=== PATIENT | male | born 1935 | race Caucasian/White ===

== ENCOUNTER 2017-07-13 06:39 | Emergency (ER) | payer MEDICARE, OTHER ==
--- NOTE | 2017-07-13 08:18 | EDM.PDOC ---
ED HPI GENERAL MEDICAL PROBLEM - General Chief Complaint: Neurological Problem Stated Complaint: STROKE? Time Seen by Provider: 07/13/17 06:50 Source of Information: Reports: Patient History Limitations: Reports: No Limitations - History of Present Illness Onset: Today, Other (pt woke up with symptoms. ) Duration: Hour(s): Location: Reports: Face, Other (pt has slurred speech. ) Associated Symptoms: Reports: No Other Symptoms - Related Data Allergies Allergy/AdvReac Type Severity Reaction Status Date / Time amoxicillin [From Augmentin] Allergy Hives Verified 07/13/17 06:50 clavulanic acid Allergy Hives Verified 07/13/17 06:50 [From Augmentin] Home Meds: Home Meds Acetaminophen [Mapap] 325 mg PO Q4HR PRN 08/11/14 [History] Calcium Carbonate/Vitamin D3 [Calcium 600 + Vit D 400] 600 mg PO DAILY 08/11/14 [History] Cyanocobalamin (Vitamin B12) [Vitamin B12] 500 mcg PO DAILY 08/11/14 [History] Fluticasone Propionate [Flovent] 2 sprays KIEL DAILY 08/11/14 [History] Multivitamin [Chewable Multi Vitamin] 1 tab PO DAILY 08/11/14 [History] Marion-3 Fatty Acids [Marion-3] 2,000 mg PO DAILY 08/11/14 [History] Omeprazole [Prilosec] 20 mg PO ASDIRECTED PRN 08/11/14 [History] Sildenafil Citrate [Viagra] 50 mg PO ASDIRECTED PRN 08/11/14 [History] Simvastatin [Zocor] 20 mg PO DAILY 08/11/14 [History] Triamterene/Hydrochlorothiazid [Triamterene-HCTZ 37.5-25 MG] 37.5 mg PO DAILY [History] Acyclovir 400 mg PO DAILY PRN 07/13/17 [History] Metoprolol Tartrate [Lopressor] 25 mg PO Q12HR 07/13/17 [History] Warfarin [Coumadin] 5 mg PO DAILY 07/13/17 [History] predniSONE [Prednisone] 5 mg PO DAILY PRN 07/13/17 [History] Past Medical History HEENT History: Reports: Cataract, Impaired Vision Cardiovascular History: Reports: Afib, High Cholesterol, Hypertension, Pacemaker Gastrointestinal History: Reports: Diverticulosis Musculoskeletal History: Reports: Arthritis, Fracture, Osteoarthritis - Past Surgical History Cardiovascular Surgical History: Reports: Pacer, Other (See Below) Other Cardiovascular Surgeries/Procedures: repair hole in heart GI Surgical History: Reports: Colonoscopy, Hernia Repair/Other Musculoskeletal Surgical History: Reports: Knee Replacement Social & Family History - Tobacco Use Smoking Status *Q: Never Smoker Years of Tobacco use: 16 Second Hand Smoke Exposure: No - Caffeine Use Caffeine Use: Reports: Coffee - Alcohol Use Days Per Week of Alcohol Use: 4 Number of Drinks Per Day: 1 Total Drinks Per Week: 4 - Recreational Drug Use Recreational Drug Use: No ED ROS GENERAL - Review of Systems Review Of Systems: See Below Constitutional: Reports: No Symptoms HEENT: Reports: No Symptoms Respiratory: Reports: No Symptoms Cardiovascular: Reports: Other (pt has a known pacemaker and he is anticoagulated with coumadin. ) Endocrine: Reports: No Symptoms GI/Abdominal: Reports: No Symptoms : Reports: No Symptoms Musculoskeletal: Reports: No Symptoms Skin: Reports: No Symptoms ED EXAM, NEURO - Physical Exam Exam: See Below Text/Narrative:: pt arrived with facial deviation and slurred speech. He did not have other weakness. He woke up this am with this. Exam Limited By: No Limitations General Appearance: Alert, No Apparent Distress, Other (pupils equal and reactive. ) Ears: Normal TMs Nose: Normal Inspection Throat/Mouth: Normal Inspection Head Exam: Atraumatic Neck: Normal Inspection Respiratory/Chest: No Respiratory Distress Cardiovascular: Regular Rate, Rhythm, Other (pt has a permanent pacemaker. ) GI/Abdominal: Soft, Non-Tender (Male) Exam: Deferred Rectal (Males) Exam: Deferred Neurological: Alert, Oriented x 3, Other (pt has facial deviation and slurred speech. He woke up this am with the symptoms. ) Back Exam: Normal Inspection Extremities: Normal Inspection, Other (pt has normal strentgh bilaterally in both the upper and lower extremities. ) Psychiatric: Normal Affect Course - Vital Signs Last Recorded V/S: Last Vital Signs Temp 36.9 C 07/13/17 06:42 Pulse 86 07/13/17 06:42 Resp 16 07/13/17 06:42 BP 187/77 H 07/13/17 06:42 Pulse Ox 95 07/13/17 06:42 - Orders/Labs/Meds Orders: Active Orders 24 hr Category Date Time Status EKG Documentation Completion [RC] ASDIRECTED Care 07/13/17 07:03 Active Head wo Cont [CT] Stat Exams 07/13/17 07:03 Taken EKG 12 Lead [EK] Routine Ther 07/13/17 07:03 Ordered Labs: Laboratory Tests 07/13/17 07/13/17 07/13/17 Range/Units 07:18 07:18 07:18 WBC 8.6 (4.5-11.0) K/uL RBC 4.38 (4.30-5.90) M/uL Hgb 13.4 (12.0-15.0) g/dL Hct 38.3 L (40.0-54.0) % MCV 87 (80-98) fL MCH 31 (27-31) pg MCHC 35 (32-36) % Plt Count 268 (150-400) K/uL Neut % (Auto) 63 (36-66) % Lymph % (Auto) 22 L (24-44) % [place] % (Auto) 12 H (2-6) % Eos % (Auto) 2 (2-4) % Baso % (Auto) 1 (0-1) % PT 23.6 H (9.5-12.0) sec INR 2.14 H (0.80-1.20) Sodium 138 L (140-148) mmol/L Potassium 3.6 (3.6-5.2) mmol/L Chloride 100 (100-108) mmol/L Carbon Dioxide 28 (21-32) mmol/L Anion Gap 13.6 (5.0-14.0) mmol/L BUN 23 H (7-18) mg/dL Creatinine 1.1 (0.8-1.3) mg/dL Est Cr Clr Drug Dosing 47.56 mL/min Estimated GFR (MDRD) > 60 (>60) Glucose 107 H (74-106) mg/dL Calcium 9.3 (8.5-10.1) mg/dL Total Bilirubin 0.4 (0.2-1.0) mg/dL AST 28 (15-37) U/L ALT 31 (12-78) U/L Alkaline Phosphatase 77 (46-116) U/L Total Protein 7.2 (6.4-8.2) g/dL Albumin 3.5 (3.4-5.0) g/dL Globulin 3.7 H (2.3-3.5) g/dL Albumin/Globulin Ratio 1.0 L (1.2-2.2) - Re-Assessments/Exams Free Text/Narrative Re-Assessment/Exam: 07/13/17 08:42 cat scan of the head was neg. He does have a pacemaker so he canot have a mri. He appears to have difficulty wrinkling his forehad and he has the facial deviation. Departure - Departure Time of Disposition: 08:44 Disposition: Home, Self-Care 01 Condition: Fair Clinical Impression: Downey's palsy, History of permanent cardiac pacemaker placement, History of Coumadin therapy - Discharge Information Referrals: PCP,None [Primary Care Provider] - Care Plan Goals: push fluids because of the cat scan with contrast tomorrow., rtc tomorrow for a cta of the head, Call dr Lovell with the results and he will come and talk with the family, rtc if symptoms should get worse in the next 24 hours, low activity today. predisone, 30mg for 2 days, 20mg for 2 days 15 mg for 2 days, 10mg for 2days. follow up with Dr Krishnamurthy in 1 week - My Orders Last 24 Hours: My Active Orders 07/13/17 07:03 EKG Documentation Completion [RC] ASDIRECTED Head wo Cont [CT] Stat EKG 12 Lead [EK] Routine - Assessment/Plan Last 24 Hours: My Active Orders 07/13/17 07:03 EKG Documentation Completion [RC] ASDIRECTED Head wo Cont [CT] Stat EKG 12 Lead [EK] Routine
[2017-07-13 09:45] VITALS: BP 143/71
== END 2017-07-13 09:35 | disposition home or self-care (01) ==
LOC: JP.ED 06:39
DX: G51.0 Bell's palsy (principal); E78.00 Pure hypercholesterolemia, unspecified; I10 Essential (primary) hypertension; I48.91 Unspecified atrial fibrillation; Z88.1 Allergy status to other antibiotic agents; Z88.8 Allergy status to other drugs, medicaments and biological substances; Z79.899 Other long term (current) drug therapy; Z79.01 Long term (current) use of anticoagulants; Z95.9 Presence of cardiac and vascular implant and graft, unspecified
CPT/HCPCS: 36415; 70450; 80053; 85025; 85610; 93005; 99285-25

== ENCOUNTER 2022-01-15 12:32 | Emergency (ER) | payer MEDICARE, OTHER ==
[2022-01-15 13:11] VITALS: BP 175/90; PULSE 91
== END 2022-01-15 14:23 | disposition home or self-care (01) ==
LOC: JP.ED 12:32
DX: R10.32 Left lower quadrant pain (principal); I48.91 Unspecified atrial fibrillation; E78.00 Pure hypercholesterolemia, unspecified; I10 Essential (primary) hypertension; Z95.0 Presence of cardiac pacemaker; Z88.0 Allergy status to penicillin; Z79.899 Other long term (current) drug therapy; Z79.01 Long term (current) use of anticoagulants
CPT/HCPCS: 36415; 80048; 83605; 85025; 99284

== ENCOUNTER 2022-09-24 14:01 | Emergency (ER) | payer MEDICARE, OTHER ==
[2022-09-24 16:28] VITALS: BP 145/103; PULSE 80
== END 2022-09-24 16:45 | disposition home or self-care (01) ==
LOC: JP.ED 14:01
DX: S22.41XA Multiple fractures of ribs, right side, initial encounter for closed fracture (principal); I48.91 Unspecified atrial fibrillation; E78.00 Pure hypercholesterolemia, unspecified; I10 Essential (primary) hypertension; Z95.0 Presence of cardiac pacemaker; Z88.0 Allergy status to penicillin; Z87.891 Personal history of nicotine dependence; W22.8XXA Striking against or struck by other objects, initial encounter
CPT/HCPCS: 71101-RT; 99283